=== PATIENT | male | born 1980 | race Caucasian/White ===

== ENCOUNTER 2021-02-28 18:19 | Emergency (ER) | payer SELFPAY ==
[~2021-02-28] VITALS: Ht 182.9 cm; Wt 90.7 kg
[2021-02-28 18:23] VITALS: BP 157/94
--- NOTE | 2021-02-28 18:38 | NUR ---
PATIENT [facility] POLICE DEPT. PATIENT EXAMINED BY DR. ETIENNE. PATIENT MEDICALLY CLEARED AND RELEASED IN CUSTODY IN STABLE CONDITION. ORIGINAL PRE-BOOK FORM GIVEN TO OFFICER ETHAN, #[id number].
== END 2021-02-28 18:38 | disposition home or self-care (01) ==
LOC: MED 18:19
DX: S09.90XA Unspecified injury of head, initial encounter (principal); Z98.890 Other specified postprocedural states; W22.8XXA Striking against or struck by other objects, initial encounter; Y93.89 Activity, other specified; Y92.89 Other specified places as the place of occurrence of the external cause; Y99.8 Other external cause status
CPT/HCPCS: 99283